=== PATIENT | female | born 1955 | race African-American/Black ===

== ENCOUNTER 2019-11-18 11:32 | Emergency (ER) | payer OTHER ==
[~2019-11-18] VITALS: Ht 170.2 cm; Wt 81.7 kg
[~2019-11-18 11:32] MED LIST: FLEXERIL PO; NOHOMEMEDICATIONS; NORCO 5-325 TA1 EACH PO
[2019-11-18 11:42] VITALS: BP 161/77
[2019-11-18] MEDS ORDERED: VOLTAREN GEL 1100 G1 TOP (11:50)
[2019-11-18] MEDS ORDERED: ROBAXIN 750 MG750 MG PO (11:50)
== END 2019-11-18 12:00 | disposition home or self-care (01) ==
LOC: M.ERS 11:32
DX: S46.812A Strain of other muscles, fascia and tendons at shoulder and upper arm level, left arm, initial encounter (principal); M54.14 Radiculopathy, thoracic region; X58.XXXA Exposure to other specified factors, initial encounter; Y93.89 Activity, other specified; Y92.89 Other specified places as the place of occurrence of the external cause; Y99.8 Other external cause status